=== PATIENT | female | born 1990 | race American Indian/Alaskan Native ===

== ENCOUNTER → 2021-08-21 20:59 | Emergency (ER) | payer MEDICAID, OTHER | END | disposition left against medical advice (07) | LOC: ED 20:59 | DX: I10 Essential (primary) hypertension (principal); Z53.21 Procedure and treatment not carried out due to patient leaving prior to being seen by health care provider ==

== ENCOUNTER 2021-10-26 21:56 | Emergency (ER) | payer MEDICAID ==
[2021-10-27 03:20] VITALS: BP 133/82
--- NOTE | 2021-10-27 04:12 | Emergency Department Report ---
ED ENT HPI - General Chief complaint: Sore Throat Stated complaint: COUGHING/ITCHY THROAT/CP Time Seen by Provider: 10/27/21 02:48 Source: patient Mode of arrival: Ambulatory Limitations: No Limitations - History of Present Illness MD complaint: sore throat -: Gradual Location: throat Severity: mild, moderate Quality: dull Consistency: constant Improves with: none Worsens with: swallowing Associated Symptoms: cough, pain with swallowing, sore throat, rhinorrhea - Related Data Previous Rx's Medication Instructions Recorded Last Taken Type Amoxicillin [Amoxicillin TAB] 875 mg PO BID #20 tablet 10/27/21 Unknown Rx Lidocaine Viscous 2% 5 ml MM Q3H PRN #120 udc 10/27/21 Unknown Rx Allergies Allergy/AdvReac Type Severity Reaction Status Date / Time No Known Allergies Allergy Unverified 10/26/21 22:52 ED Dental HPI - General Chief complaint: Sore Throat Stated complaint: COUGHING/ITCHY THROAT/CP Time Seen by Provider: 10/27/21 02:48 Source: patient Mode of arrival: Ambulatory Limitations: No Limitations - Related Data Previous Rx's Medication Instructions Recorded Last Taken Type Amoxicillin [Amoxicillin TAB] 875 mg PO BID #20 tablet 10/27/21 Unknown Rx Lidocaine Viscous 2% 5 ml MM Q3H PRN #120 udc 10/27/21 Unknown Rx Allergies Allergy/AdvReac Type Severity Reaction Status Date / Time No Known Allergies Allergy Unverified 10/26/21 22:52 ED Review of Systems ROS: Stated complaint: COUGHING/ITCHY THROAT/CP Other details as noted in HPI Comment: All other systems reviewed and negative ED Past Medical Hx - Social History Smoking Status: Never Smoker Substance Use Type: Alcohol, Marijuana - Medications Home Medications: Home Medications Medication Instructions Recorded Confirmed Last Taken Type Amoxicillin [Amoxicillin TAB] 875 mg PO BID #20 tablet 10/27/21 Unknown Rx Lidocaine Viscous 2% 5 ml MM Q3H PRN #120 udc 10/27/21 Unknown Rx ED Physical Exam - General Limitations: No Limitations General appearance: alert, in no apparent distress - Head Head exam: Present: atraumatic, normocephalic - Eye Eye exam: Present: normal appearance, PERRL, EOMI - ENT ENT exam: Present: mucous membranes moist, other (Pharynx with swelling and erythema some nasal discharge noted. Airway patent no exudate) - Neck Neck exam: Present: normal inspection, lymphadenopathy - Respiratory Respiratory exam: Present: normal lung sounds bilaterally. Absent: respiratory distress, wheezes, rales, rhonchi, stridor - Cardiovascular Cardiovascular Exam: Present: regular rate, normal rhythm, normal heart sounds. Absent: bradycardia, tachycardia, systolic murmur, diastolic murmur, rubs, gallop - GI/Abdominal GI/Abdominal exam: Present: soft, normal bowel sounds - Extremities Exam Extremities exam: Present: normal inspection, full ROM, normal capillary refill - Back Exam Back exam: Present: normal inspection. Absent: CVA tenderness (R), CVA tenderness (L) - Neurological Exam Neurological exam: Present: alert, oriented X3, CN II-XII intact, normal gait - Psychiatric Psychiatric exam: Present: normal affect, normal mood - Skin Skin exam: Present: warm, dry, intact, normal color. Absent: rash ED Course Vital Signs 10/27/21 03:19 Temperature 98.9 F Pulse Rate 79 Respiratory 18 Rate Blood Pressure 133/82 [Left] O2 Sat by Pulse 95 Oximetry ED Medical Decision Making - EKG Data Interpretation: no acute changes Critical care attestation.: If time is entered above; I have spent that time in minutes in the direct care of this critically ill patient, excluding procedure time. ED Disposition Clinical Impression: Pharyngitis Disposition: 01 HOME / SELF CARE / HOMELESS Is pt being admited?: No Does the pt Need Aspirin: No Condition: Stable Instructions: Upper Respiratory Infection, Adult, Pharyngitis, Strep Throat, Adult, Pharyngitis, [id number] Prescriptions: Amoxicillin [Amoxicillin TAB] 875 mg PO BID #20 tablet Lidocaine Viscous 2% 5 ml MM Q3H PRN #120 udc PRN Reason: Pain, Moderate (4-6)
== END 2021-10-27 04:54 | disposition home or self-care (01) ==
LOC: ED 21:56
DX: J02.9 Acute pharyngitis, unspecified (principal)
CPT/HCPCS: 99282